=== PATIENT | female | born 1995 | race American Indian/Alaskan Native ===

== ENCOUNTER 2017-10-31 02:52 | Outpatient (CLI) | payer OTHER ==
[2017-10-31 03:40] VITALS: BP 138/92
[2017-10-31 04:02] LABS: Bacteria,Urine 4+ /HPF (Negative); Bilirubin,Urine NEG (Negative); Blood,Urine NEG (Negative); Color,Urine Yellow (Yellow); Hyaline Casts,Urine 1 /LPF; Mucus,Urine FEW /HPF; Protein,Urine <15 mg/dL mg/dL (Negative); Urobilinogen,Urine < 2.0 mg/dL (<2.0)
[2017-10-31] MEDS ORDERED: BENADRYL IV ONE (04:10)
[2017-10-31] MEDS ORDERED: LACTATED RINGERS 1,000 ML IV SCH (04:10)
[2017-10-31] MEDS ORDERED: LACTATED RINGERS 1,000 ML ONE (04:12)
[2017-10-31] MEDS ORDERED: BENADRYL ONE (04:12)
[2017-10-31] MEDS ORDERED: KENALOG TP SCH (05:00)
== END 2017-10-31 05:30 | disposition home or self-care (01) ==
LOC: TRG 02:52
PROVIDERS: ATTEND Obstetrics & Gynecology
DX: O47.1 False labor at or after 37 completed weeks of gestation (principal); Z3A.38 38 weeks gestation of pregnancy
CPT/HCPCS: 59025; 81001; 96360; J1200; J7120

== ENCOUNTER 2017-10-31 09:28 | Inpatient (IN) | payer OTHER ==
[2017-10-31] MEDS ORDERED: STADOL IV PRN (12:40)
[2017-10-31] MEDS ORDERED: LACTATED RINGERS 1,000 ML IV SCH ×2 (13:00→14:00)
[2017-10-31 13:21] LABS: Hematocrit 35.9 % (30.3-42.9); Hemoglobin 12.2 gm/dl (10.1-14.3); Mean Corpuscular HGB Conc 34 % (30-34); Mean Corpuscular Hemoglobin 30 pg (28-32); Mean Corpuscular Volume 89 fl (79-97); Platelet Count 169 K/mm3 (140-440); Red Blood Count 4.05 M/mm3 (3.65-5.03); Red Cell Distribution Width 12.8 % (13.2-15.2)
[2017-10-31] MEDS ORDERED: SUBLIMAZE IV PRN (13:59)
[2017-10-31] MEDS ORDERED: MINERAL OIL PO PRN (13:59)
[2017-10-31] MEDS ORDERED: BRETHINE SUB-Q PRN (13:59)
[2017-10-31] MEDS ORDERED: NARCAN 0.4 MG/1 ML IV PRN (13:59)
[2017-10-31] MEDS ORDERED: ZOFRAN IV PRN ×2 (13:59→21:56)
[2017-10-31] MEDS ORDERED: XYLOCAINE 2% INFILTRATI ONE (13:59)
[2017-10-31] MEDS ORDERED: ePHEDrine SULFATE IV PRN ×2 (13:59→15:23)
[2017-10-31] MEDS ORDERED: BRETHINE IVP PRN (13:59)
[2017-10-31] MEDS ORDERED: PITOCin/NS 20 UNIT/1000ML DRIP 20 UNITS/1,000 ML BAG IV SCH ×2 (14:00→22:00)
[2017-10-31] MEDS ORDERED: PITOCin/NS 30 UNIT/500ML 30 UNITS/500 ML BAG IV SCH (14:00)
[2017-10-31] MEDS ORDERED: NARCAN 2 MG/2 ML IV PRN (15:23)
--- NOTE | 2017-10-31 15:23 | Anesthesia Consultation ---
Anesthesia Consult and Med Hx Date of service: 10/31/17 - Airway Anesthetic Teeth Evaluation: Good ROM Head & Neck: Adequate Mental/Hyoid Distance: Adequate Mallampati Class: Class II Intubation Access Assessment: Probably Good - Pre-Operative Health Status ASA Pre-Surgery Classification: ASA2 Proposed Anesthetic Plan: Epidural, Spinal - Pulmonary Hx Asthma: No COPD: No Hx Pneumonia: No - Cardiovascular System Hx Hypertension: No - Central Nervous System Hx Seizures: No Hx Psychiatric Problems: No - Endocrine Hx Renal Disease: No Hx End Stage Renal Disease: No Hx Hypothyroidism: No Hx Hyperthyroidism: No - Hematic Hx Anemia: No Hx Sickle Cell Disease: No - Other Systems Hx Alcohol Use: No
[2017-10-31] MEDS ORDERED: fentaNYL-BUPIV 2 MCG/ML-0.125% 200 MCG/100 ML BAG EPIDURAL SCH (16:00)
[2017-10-31] MEDS ORDERED: XYLOCAINE MPF 2% ONE ×2 (16:00→19:00)
--- NOTE | 2017-10-31 16:23 | History and Physical Report ---
History of Present Illness Date of examination: 10/31/17 Date of admission: 10/31/17 13:37 Chief complaint: contractions History of present illness: Pt is a 22 year old -[place] female primigravida ESTRELLITA 11/08/17 at 38w6d who presents with regular painful contractions and cervical change from 2 to 4 cm while ambulating in triage. She reports no leakage of fluid or vaginal bleeding. 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 She is GBS negative. Past History Past Medical History: hematologic disorders (alpha thalassemia carrier ) Past Surgical History: no surgical history [employer] TE[employer]ER History: herpes Family/Genetic History: diabetes, heart disease, hypertension Social history: no significant social history - Obstetrical History Expected Date of Delivery: 11/08/17 Actual Gestation: 38 Week(s) 6 Day(s) : 1 Medications and Allergies Allergies Allergy/AdvReac Type Severity Reaction Status Date / Time No Known Allergies Allergy Unverified 10/31/17 03:42 Home Medications Medication Instructions Recorded Confirmed Last Taken Type Vit,Calc76/Iron/Folic 1 tab PO DAILY 10/31/17 10/31/17 10/30/17 10:00 History [Pnv 29-1 Tablet] Active Meds: Active Medications Butorphanol Tartrate (Stadol) 2 mg IV Q2H PRN PRN Reason: Labor Pain Last Admin: 10/31/17 13:54 Dose: 2 mg Ephedrine Sulfate (Ephedrine Sulfate) 10 mg IV Q2M PRN PRN Reason: Hypotension Ephedrine Sulfate (Ephedrine Sulfate) 10 mg IV Q2M PRN PRN Reason: Hypotension Fentanyl (Sublimaze) 100 mcg IV Q2H PRN PRN Reason: Labor Pain Lactated Ringer's (Lactated Ringers) 1,000 mls @ 125 mls/hr IV DIRECT MALATHI Last Admin: 10/31/17 13:55 Dose: 125 mls/hr Lactated Ringer's (Lactated Ringers) 1,000 mls @ 125 mls/hr IV DIRECT MALATHI Oxytocin/Sodium Chloride (Pitocin/Ns 20 Unit/1000ml Drip) 20 units in 1,000 mls @ 125 mls/hr IV DIRECT MALATHI Oxytocin/Sodium Chloride (Pitocin/Ns 30 Unit/500ml) 30 units in 500 mls @ 4 mls /hr IV TITR MALATHI; Protocol Fentanyl/Bupivacaine/Sodium Chlor (Fentanyl-Bupiv 2 Mcg/Ml-0.125%) 200 mcg in 100 mls @ 12 mls/hr EPIDURAL TITR MALATHI; Protocol Mineral Oil (Mineral Oil) 30 ml PO QHS PRN PRN Reason: Constipation Naloxone HCl (Narcan 0.4 Mg/1 Ml) 0.1 mg IV Q2MIN PRN PRN Reason: Res Rate </= 8 or 02 SAT < 92% Naloxone HCl (Narcan 2 Mg/2 Ml) 0.2 mg IV Q5M PRN PRN Reason: Respiratory sedation Ondansetron HCl (Zofran) 4 mg IV Q8H PRN PRN Reason: Nausea And Vomiting Terbutaline Sulfate (Brethine) 0.25 mg SUB-Q ONCE PRN PRN Reason: Hyperstimulation/Hypertonicity Terbutaline Sulfate (Brethine) 0.25 mg IVP ONCE PRN PRN Reason: Hyperstimulation/Hypertonicity Review of Systems All systems: negative - Vital Signs Vital signs: Vital Signs Temp Pulse Resp BP Pulse Ox 97.8 F 85 18 139/79 99 10/31/17 10:16 10/31/17 10:16 10/31/17 10:16 10/31/17 10:16 10/31/17 10:16 Temp Pulse Resp BP Pulse Ox 97.8 F 85 18 139/79 99 10/31/17 10:16 10/31/17 10:16 10/31/17 13:54 10/31/17 10:16 10/31/17 10:16 - Physical Exam Breasts: Positive: deferred Cardiovascular: Regular rate Lungs: Positive: Clear to auscultation Abdomen: Positive: soft (gravid ) Uterus: Positive: enlarged (gravid ) Extremities: Positive: normal - Obstetrical FHR: category 2 Uterine Contraction Monitor Mode: External Cervical Dilatation: 7 Cervical Effacement Percentage: 100 station: -1 Uterine Contraction Pattern: Regular Uterine Tone Measurement Phase: Resting Uterine Contraction Intensity: Strong/Firm Results Result Diagrams: 10/31/17 13:01 Abnormal lab results 10/31/17 Range/Units 13:01 RDW 12.8 L (13.2-15.2) % All other labs normal. Assessment and Plan A: IUP at 38w6d Active labor Genital herpes without lesion or prodrome Insufficient care GBS Negative P: Admit to labor and delivery AROM- clear fluid Routine intrapartum care Closely monitor maternal and status
--- NOTE | 2017-10-31 19:13 | Event Note ---
Date: 10/31/17 Pt uncomfortable with contractions despite epidural. Pt complete/complete/+2. Continue routine intrapartum care.
[2017-10-31] MEDS: METHERGINE IM ONE (21:09)
--- NOTE | 2017-10-31 21:35 | Procedure Note ---
OB Delivery Note - Delivery Date of Delivery: 10/31/17 Surgeon: NELLY CYR Estimated blood loss: 500cc - Vaginal Delivery presentation: compound Delivery position: OA Intrapartum events: PROM->1hr before delivery, decreased FHT variability, uterine atony (treated with Methergine 0.2 mg IM ) Delivery induction: none Delivery augmentation: rupture of membranes Delivery monitor: external FHT, external uterine Route of delivery: Delivery placenta: spontaneous Episiotomy: none Delivery laceration: 2nd degree (repaired with 2-0 Vicryl ), other (bilateral periurethral - hemostatic, not repaired ) Delivery repair: vicryl Anesthesia: epidural - Infant A at 1 minute: 8 at 5 minutes: 9 Infant Gender: Male (3498g (7lb 11 oz) @ 2100 pm)
[2017-10-31] MEDS ORDERED: METHERGINE IM ONE (21:40)
[2017-10-31] MEDS ORDERED: BENADRYL PO PRN (21:56)
[2017-10-31] MEDS ORDERED: NORCO 5/325 PO PRN (21:56)
[2017-10-31] MEDS ORDERED: PHENERGAN PO PRN (21:56)
[2017-10-31] MEDS ORDERED: PHENERGAN PR PRN (21:56)
[2017-10-31] MEDS ORDERED: DERMOPLAST TP PRN (21:56)
[2017-10-31] MEDS ORDERED: DULCOLAX PR PRN (21:56)
[2017-10-31] MEDS ORDERED: TUCKS PAD TP PRN (21:56)
[2017-10-31] MEDS ORDERED: TYLENOL PO PRN (21:56)
[2017-10-31] MEDS ORDERED: LANSINOH TP PRN ×2 (21:56)
[2017-10-31] MEDS ORDERED: MILK OF MAGNESIA PO PRN (21:56)
[2017-10-31] MEDS ORDERED: SODIUM CHLORIDE FLUSH SYRINGE 10 ML IV NR (22:00)
[2017-10-31] MEDS: MOTRIN PO SCH (22:03)
[2017-10-31] MEDS: FEOSOL PO SCH (23:57)
[2017-11-01] MEDS: METHERGINE IM ONE (01:31)
[2017-11-01] MEDS: MOTRIN PO SCH ×3 (05:40→23:38)
[2017-11-01] MEDS ORDERED: M-M-R II VACCINE SUB-Q ONE (06:00)
--- NOTE | 2017-11-01 08:46 | Progress Note ---
Assessment and Plan O: BP elevated 140-150/90-100 A: 12 hours PP Elevated BP, r/o PIH P: PIH panel Subjective - Subjective Date of service: 11/01/17 Patient reports: other (resting with eyes closed) [place]: doing well Objective - Vital Signs Latest vital signs: Vital Signs Temp Pulse Resp BP Pulse Ox 11/01/17 05:40 18 11/01/17 00:01 98.6 F 87 146/88 10/31/17 23:30 102 H 132/80 10/31/17 23:06 94 H 143/71 10/31/17 22:51 101 H 141/75 97 10/31/17 22:36 93 H 153/88 97 10/31/17 22:05 94 H 18 152/76 97 10/31/17 22:03 20 10/31/17 21:51 96 H 20 157/96 10/31/17 21:42 86 145/77 10/31/17 21:35 98.2 F 86 20 145/77 10/31/17 21:24 95 H 152/82 10/31/17 21:08 97 H 137/88 10/31/17 19:05 97.6 F 96 H 20 127/63 10/31/17 13:54 18 10/31/17 10:16 97.8 F 85 18 139/79 99 Intake and Output 10/31/17 11/01/17 11/01/17 22:59 06:59 14:59 Intake Total 900 Output Total 800 850 Balance -800 50 Intake: Oral 540 Intake, Free Water 360 Output: Urine 800 850 Indwelling Catheter 800 350 Void 500 Other: Total, Intake Amount 240 Total, Output Amount 800 500 # Voids Void 1 Weight 73.936 kg Estimated Blood Loss 500 - Exam Breasts: Present: deferred Abdomen: Present: normal appearance, soft Uterus: Present: normal, firm, fundal height below umbilicus. Absent: bogginess , tenderness Extremities: Present: normal - Labs Labs: Abnormal lab results 10/31/17 Range/Units 13:01 RDW 12.8 L (13.2-15.2) %
[2017-11-01 08:48] LABS: Hematocrit 29.2 % (30.3-42.9); Mean Corpuscular HGB Conc 34 % (30-34); Mean Corpuscular Hemoglobin 30 pg (28-32); Mean Corpuscular Volume 88 fl (79-97); Platelet Count 168 K/mm3 (140-440); Red Blood Count 3.31 M/mm3 (3.65-5.03); Red Cell Distribution Width 12.8 % (13.2-15.2)
[2017-11-01 09:02] LABS: Alanine Aminotransferase 21 units/L (7-56); Uric Acid 3.2 mg/dL (3.5-7.6)
--- NOTE | 2017-11-01 13:25 | Event Note ---
Date: 11/01/17 [facility] labs normal BP: 107/61 P: Continue monitoring Magnesium Sulfate prn
[2017-11-01] MEDS: FEOSOL PO SCH ×2 (14:15→23:38)
[2017-11-01] MEDS ORDERED: HYTONE CR TP PRN (18:07)
[2017-11-01] MEDS ORDERED: BOOSTRIX IM ONE (21:41)
[2017-11-02 04:52] LABS: Bilirubin,Urine NEG (Negative); Blood,Urine MOD (Negative); Color,Urine Yellow (Yellow); Protein,Urine <15 mg/dL mg/dL (Negative); Urobilinogen,Urine < 2.0 mg/dL (<2.0)
[2017-11-02] MEDS: MOTRIN PO SCH ×2 (05:22→13:00)
[2017-11-02] MEDS: FEOSOL PO SCH (13:00)
--- NOTE | 2017-11-02 14:21 | Progress Note ---
Assessment and Plan A/P PPD 2 s/p doing well VSS clean catrhc urine today urine +wbc /blood will treat with macrobid d/c home f/u in 4 weeks Subjective - Subjective Date of service: 11/02/17 Principal diagnosis: s/p Patient reports: appetite normal, voiding normally, pain well controlled, flatus , ambulating normally [place]: doing well Objective - Vital Signs Latest vital signs: Vital Signs Temp Pulse Resp BP BP Pulse Ox 11/02/17 07:58 98 F 87 20 133/78 11/02/17 00:33 98.2 F 90 20 124/60 99 Intake and Output 11/01/17 11/02/17 11/02/17 23:59 07:59 15:59 Intake Total 200 480 Balance 200 480 Intake: Oral 200 Intake, Free Water 480 Other: Total, Intake Amount 200 # Voids Void 1 2 - Exam Breasts: Present: normal Cardiovascular: Present: Regular rate, Normal S1 Lungs: Present: Clear to auscultation, Normal air movement Abdomen: Present: normal appearance, soft, normal bowel sounds. Absent: distention, tenderness, guarding Vulva: both: normal Uterus: Present: normal, firm, fundal height below umbilicus. Absent: bogginess , tenderness Deep Tendon Reflex Grade: Normal +2 Incision: Present: normal - Labs Labs: Abnormal lab results 11/01/17 Range/Units 04:15 Urine WBC (Auto) 22.0 H (0.0-6.0) /HPF
--- NOTE | 2017-11-02 14:23 | Discharge Summary ---
Providers - Providers Date of Admission: 10/31/17 13:37 Date of discharge: 11/02/17 Attending physician: NELLY CYR 10/31/17 21:56 Consult to Drafter (Cad) Electrical [CONS] Routine Reason For Exam: assistance with , SNS Primary care physician: NELLY CYR Hospitalization Reason for admission: active labor Delivery: Episiotomy: none Laceration: none Incision: normal, dry Other procedures: none complications: none baby: male Condition at discharge: Good Disposition: DC-01 TO HOME OR SELFCARE Plan - Discharge Medications Prescriptions: Ferrous Sulfate 325 mg PO BID #30 tablet. Ibuprofen [Motrin] 600 mg PO Q8H PRN #30 tablet PRN Reason: Pain Nitrofurantoin [place]/M-Cryst [Macrobid CAP] 100 mg PO BID #14 capsule oxyCODONE /ACETAMINOPHEN [Percocet 5/325] 1 tab PO Q6HR PRN #30 tablet PRN Reason: Pain - Provider Discharge Summary Activity: routine, no sex for 6 weeks, no strenuous exercise Diet: routine Instructions: routine Additional instructions: [] Smoking cessation referral if applicable(refer to patient education folder for contact #) [] Refer to [facility] Booklet Call your doctor immediately for: * Fever > 100.5 * Heavy vaginal bleeding ( >1 pad per hour) * Severe persistent headache * Shortness of breath * Reddened, hot, painful area to leg or breast * Drainage or odor from incision. * Keep incision clean and dry at all times and follow doctor's instructions regarding bathing/showering - Follow up plan Follow up: NELLY CYR MD [Primary Care Provider] - 11/28/17
[2017-11-02] MEDS ORDERED: MACROBID PO SCH (15:00)
[2017-11-02 16:54] VITALS: BP 129/83
== END 2017-11-02 18:15 | disposition home or self-care (01) | DRG 774 ==
LOC: TRG 09:28 → LD 13:37 → OB 23:35
PROVIDERS: ADMIT Obstetrics & Gynecology; ATTEND Obstetrics & Gynecology
PROC: 10E0XZZ Delivery of Products of Conception, External Approach (ICD-10-PCS; principal; 2017-10-31)
PROC: 3E0R3BZ Introduction of Anesthetic Agent into Spinal Canal, Percutaneous Approach (ICD-10-PCS; 2017-10-31)
PROC: 00HU33Z Insertion of Infusion Device into Spinal Canal, Percutaneous Approach (ICD-10-PCS; 2017-10-31)
PROC: 3E0234Z Introduction of Serum, Toxoid and Vaccine into Muscle, Percutaneous Approach (ICD-10-PCS; 2017-10-31)
PROC: 10907ZC Drainage of Amniotic Fluid, Therapeutic from Products of Conception, Via Natural or Artificial Opening (ICD-10-PCS; 2017-10-31)
PROC: 0KQM0ZZ Repair Perineum Muscle, Open Approach (ICD-10-PCS; 2017-10-31)
DX: O42.92 Full-term premature rupture of membranes, unspecified as to length of time between rupture and onset of labor (principal); O98.32 Other infections with a predominantly sexual mode of transmission complicating childbirth; A60.00 Herpesviral infection of urogenital system, unspecified; O75.89 Other specified complications of labor and delivery; D56.3 Thalassemia minor; O99.62 Diseases of the digestive system complicating childbirth; K59.00 Constipation, unspecified; Z83.3 Family history of diabetes mellitus; Z82.49 Family history of ischemic heart disease and other diseases of the circulatory system; Z79.899 Other long term (current) drug therapy; Z3A.38 38 weeks gestation of pregnancy; Z37.0 Single live birth; Z23 Encounter for immunization; O70.1 Second degree perineal laceration during delivery; O76 Abnormality in fetal heart rate and rhythm complicating labor and delivery; O62.2 Other uterine inertia
CPT/HCPCS: 36415; 81001; 82565; 83615; 84450; 84460; 84550; 85027; 86592; 86850; 86900; 86901; 87086; 88307; 99211; A6250; G0463; J0595; J2210; J2590; J7120

== ENCOUNTER 2017-12-27 01:35 | Emergency (ER) | payer SELFPAY ==
[2017-12-27 02:19] VITALS: BP 118/65
[2017-12-27] MEDS ORDERED: MOTRIN PO ONE (02:19)
== END 2017-12-27 05:19 | disposition left against medical advice (07) ==
LOC: ED 01:35
DX: R50.9 Fever, unspecified (principal); Z53.21 Procedure and treatment not carried out due to patient leaving prior to being seen by health care provider